=== PATIENT | female | born 1980 | race African-American/Black ===

== ENCOUNTER 2022-02-18 12:59 | Emergency (ER) | payer MEDICAID, OTHER ==
[~2022-02-18] VITALS: Ht 160 cm; Wt 90.7 kg
[2022-02-18] MEDS ORDERED: cloNIDine HCL 0.1 MG TAB PO ONE (13:30)
[2022-02-18] MEDS ORDERED: SODIUM CHLORIDE 0.9% 1,000 ML IV ONE (14:15)
[2022-02-18] MEDS ORDERED: ASPirin 81 mg TAB PO ONE (14:15)
[2022-02-18 14:54] LABS: Basophils # (auto) 0 10 ^3/uL (0-0.2); Basophils % (auto) 0.8 % (0.0-2.0); Eosinophils # (auto) 0.1 10 ^3/uL (0-0.8); Eosinophils % (auto) 1.4 % (0.0-7.0); Hematocrit 37.7 % (36.0-46.0); Hemoglobin 12.6 g/dL (12.2-16.2); Lymphocytes # (auto) 2.1 10 ^3/uL (0.4-5.4); Lymphocytes % (auto) 35.9 % (10.0-50.0); Mean Corpuscular Hemoglobin 30.7 pg (28.0-32.0); Mean Corpuscular Hgb Conc. 33.5 g/dL (32.0-36.0); Mean Corpuscular Volume 91.7 fL (80.0-100.0); Monocytes # (auto) 0.6 10 ^3/uL (0-1.3); Monocytes % (auto) 9.2 % (0.0-12.0); Neutrophils # (auto) 3.1 10 ^3/uL (1.6-8.6); Neutrophils % (auto) 52.7 % (37.0-80.0); Nucleated Red Blood Cells % 0.2 %; Red Blood Cells 4.12 10^6/uL (4.0-5.20); Red Cell Distribution Width 13.7 % (11.8-14.3)
[2022-02-18 15:07] LABS: Albumin 3.2 g/dL (3.4-5.0); Calcium 8.9 mg/dL (8.5-10.1); Magnesium 2.2 mg/dL (1.6-2.6); Potassium 4.7 mmol/L (3.5-5.1)
[2022-02-18 15:11] LABS: BUN/Creatinine Ratio 12.5; Bilirubin, Total 0.2 mg/dL (0.2-1.0); Total Protein 7.2 g/dL (6.4-8.2)
[2022-02-18 15:24] LABS: Beta HCG, Quantitative < 1 mlU/mL (1-3)
[2022-02-18 15:38] LABS: Thyroid Stimulating Hormone 0.46 uIU/mL (0.358-3.74)
[2022-02-18 16:36] LABS: Urine Bacteria FEW /hpf (None Seen); Urine Blood Negative /uL (Negative); Urine Mucus FEW (None Seen); Urine Specific Gravity 1.024 (1.001-1.035); Urine WBC 6 /hpf (0 - 5)
[2022-02-18 16:43] VITALS: BP 154/95
== END 2022-02-18 16:11 | disposition home or self-care (01) ==
LOC: ER 12:59
DX: I10 Essential (primary) hypertension (principal); H10.31 Unspecified acute conjunctivitis, right eye; J30.9 Allergic rhinitis, unspecified; J02.9 Acute pharyngitis, unspecified; F17.210 Nicotine dependence, cigarettes, uncomplicated; Z20.822 Contact with and (suspected) exposure to COVID-19
CPT/HCPCS: 36415; 70220; 71046; 80053; 81001; 83735; 84443; 84702; 85025; 87070; 87426; 87880; 93005; 96360; 96361; 99285; J7030

== ENCOUNTER 2023-05-16 12:10 | Emergency (ER) | payer MEDICAID ==
[~2023-05-16] VITALS: Ht 157.5 cm; Wt 95.0 kg
[2023-05-16] MEDS ORDERED: cloNIDine HCL 0.1 MG TAB PO ONE (14:15)
[2023-05-16 15:06] LABS: Urine Bacteria NONE SEEN /hpf (None Seen); Urine Blood Negative /uL (Negative); Urine Mucus FEW (None Seen); Urine Specific Gravity 1.029 (1.001-1.035); Urine WBC 1 /hpf (0 - 5)
[2023-05-16] MEDS ORDERED: KETOROLAC TROMETH 60MG/2ML VIAL IM ONE (15:30)
[2023-05-16] MEDS ORDERED: CLON0.2T PO (16:08)
[2023-05-16] MEDS ORDERED: CLIN300C70 PO (16:08)
[2023-05-16] MEDS ORDERED: TRAM50TA2 PO (16:08)
[2023-05-16 16:16] VITALS: BP 164/100
== END 2023-05-16 16:17 | disposition home or self-care (01) ==
LOC: ER 12:10
DX: S29.012A Strain of muscle and tendon of back wall of thorax, initial encounter (principal); I10 Essential (primary) hypertension; F41.9 Anxiety disorder, unspecified; F17.210 Nicotine dependence, cigarettes, uncomplicated; K04.7 Periapical abscess without sinus; Z32.02 Encounter for pregnancy test, result negative; X50.1XXA Overexertion from prolonged static or awkward postures, initial encounter; Y93.89 Activity, other specified; Y92.89 Other specified places as the place of occurrence of the external cause; Y99.8 Other external cause status
CPT/HCPCS: 71046; 81001; 81025; 96372; 99284; J1885

== ENCOUNTER 2023-07-17 07:59 | Emergency (ER) | payer MEDICAID ==
[~2023-07-17] VITALS: Ht 160 cm; Wt 95.3 kg
[~2023-07-17 07:59] MED LIST: CLIN300C70 PO; CLON0.2T PO; TRAM50TA2 PO
[2023-07-17] MEDS ORDERED: cloNIDine HCL 0.1 MG TAB PO ONE (08:15)
[2023-07-17 08:31] VITALS: RESP 20
[2023-07-17 08:35] VITALS: TEMP 98; O2SAT 99
[2023-07-17 09:03] VITALS: BP 148/83; PULSE 84
[2023-07-17] MEDS ORDERED: CEPH500C PO (09:18)
[2023-07-17] MEDS ORDERED: METH4PAK PO (09:18)
[2023-07-17] MEDS ORDERED: NAPR-746 PO (09:18)
== END 2023-07-17 09:24 | disposition home or self-care (01) ==
LOC: ER 07:59
DX: S60.466A Insect bite (nonvenomous) of right little finger, initial encounter (principal); B08.4 Enteroviral vesicular stomatitis with exanthem; I10 Essential (primary) hypertension; Z91.199 Patient's noncompliance with other medical treatment and regimen due to unspecified reason; W57.XXXA Bitten or stung by nonvenomous insect and other nonvenomous arthropods, initial encounter; Y93.89 Activity, other specified; Y92.89 Other specified places as the place of occurrence of the external cause; Y99.8 Other external cause status

== ENCOUNTER 2023-11-13 17:26 | Emergency (ER) | payer MEDICAID ==
[~2023-11-13] VITALS: Ht 160 cm; Wt 96.5 kg
[~2023-11-13 17:26] MED LIST changes: +CEPH500C PO; +METH4PAK PO; +NAPR-746 PO
[2023-11-13] MEDS ORDERED: cloNIDine HCL 0.1 MG TAB PO ONE (18:00)
[2023-11-13 18:42] LABS: Basophils # (auto) 0 10 ^3/uL (0-0.2); Basophils % (auto) 0.8 % (0.0-2.0); Eosinophils # (auto) 0.1 10 ^3/uL (0-0.8); Eosinophils % (auto) 1.4 % (0.0-7.0); Hematocrit 41.6 % (36.0-46.0); Hemoglobin 13.4 g/dL (12.2-16.2); Lymphocytes # (auto) 2.8 10 ^3/uL (0.4-5.4); Lymphocytes % (auto) 48.1 % (10.0-50.0); Mean Corpuscular Hemoglobin 29.3 pg (28.0-32.0); Mean Corpuscular Hgb Conc. 32.2 g/dL (32.0-36.0); Monocytes # (auto) 0.5 10 ^3/uL (0-1.3); Monocytes % (auto) 8.6 % (0.0-12.0); Neutrophils # (auto) 2.4 10 ^3/uL (1.6-8.6); Neutrophils % (auto) 41.1 % (37.0-80.0); Nucleated Red Blood Cells % 0.2 %; Red Blood Cells 4.58 10^6/uL (4.0-5.20); Red Cell Distribution Width 14.1 % (11.8-14.3); White Blood Cell 5.9 10^3/uL (4.4-10.8)
[2023-11-13 19:00] LABS: Alanine Aminotransferase 15 U/L (7-40); Albumin 4.4 g/dL (3.2-4.8); Alkaline Phosphatase 54 U/L (46-116); Anion Gap 6 (5-15); Aspartate Aminotransferase 14 U/L (13-40); BUN/Creatinine Ratio 22.1 (10.0-20.0); Blood Urea Nitrogen 17 mg/dL (9-23); Calcium 9.8 mg/dL (8.7-10.4); Carbon Dioxide 27 mmol/L (20-30); Chloride 104 mmol/L (98-107); Glucose 90 mg/dL (74-106); Lipase 32 U/L (12-53); Magnesium 1.9 mg/dL (1.6-2.6); Potassium 4.7 mmol/L (3.5-5.1); Sodium 137 mmol/L (136-145)
[2023-11-13 19:01] LABS: Bilirubin, Total 0.4 mg/dL (0.2-1.0)
[2023-11-13 19:10] LABS: INR 0.97 (0.9-1.15); Prothrombin Time 10.4 sec (9.3-11.8)
[2023-11-13 21:28] VITALS: BP 166/101; PULSE 79; RESP 18; TEMP 97.9; O2SAT 99
[2023-11-13] MEDS ORDERED: CLON0.2T PO (21:32)
== END 2023-11-13 22:09 | disposition home or self-care (01) ==
LOC: ER 17:26
DX: I10 Essential (primary) hypertension (principal); F17.210 Nicotine dependence, cigarettes, uncomplicated; Z91.199 Patient's noncompliance with other medical treatment and regimen due to unspecified reason; Z79.2 Long term (current) use of antibiotics; Z79.899 Other long term (current) drug therapy
CPT/HCPCS: 36415; 71045; 80053; 83690; 83735; 84484; 85025; 85610; 93005

== ENCOUNTER 2024-11-09 12:38 | Inpatient (IN) | payer MEDICAID ==
[~2024-11-09] VITALS: Ht 157.5 cm; Wt 100.3 kg
[~2024-11-09 12:38] MED LIST changes: +CLIN1CAP70 PO; -CLIN300C70 PO
--- NOTE | 2024-11-09 13:27 | ED.PDOC ---
Back pain HPI HPI Comments 44y F who presents to the ED via EMS for chief complaint of back pain. Pt states she has been having cough with associated back pain. Pt states she went to local urgent care and states she was told she had abnormal EKG and came to the ED for further evaluation. Pt states that when she has cough, she feels pain across her chest. Pt otherwise in the ED, has 02 sat of 100% on room air and is able to speak in full sentences. Pt otherwise denies any other symptoms at this time Chief Complaint: Back Pain Time Seen by MD: 13:25 Primary Care Provider: None Reviewed Notes: Medications Allergies: Coded Allergies: NO KNOWN ALLERGIES (Unverified , 02/18/22) Home Meds Active Scripts Clonidine Hydrochloride (Clonidine Hcl) 0.2 Mg Tab, 1 TAB PO BID for 60 Days, #120 TAB 5 Refills Prov:BK SPAULDING MD 11/13/23 Naproxen (Naproxen) 500 Mg Tab, 500 MG PO BID, #24 TAB Prov:ALICE DUMONT 07/17/23 Methylprednisolone (Medrol Dosepak) 4 Mg Leonard, 4 MG PO UD, #21 TAB UAD Prov:ALICE DUMONT 07/17/23 Cephalexin Monohydrate (Cephalexin) 500 Mg Cap, 1 CAP PO QID, #40 CAP Prov:ALICE DUMONT 07/17/23 Tramadol Hcl (Tramadol Hcl) 50 Mg Tab, 50 MG PO BID, #20 TAB Prov:ALICE DUMONT 05/16/23 Clindamycin Hcl (Clindamycin Hcl) 300 Mg Cap, 1 CAP PO TID, #30 CAP Prov:ALICE DUMONT 05/16/23 Information Source: Patient Mode of Arrival: Ambulatory Past Medical History PAST MEDICAL HISTORY: Anxiety, HTN Surgical History: Denies all surgeries BUILDING ARCHITECT History: Denies all BUILDING ARCHITECT Hx Family History Family History: Reviewed,noncontributory to illness Social History Smoker: Cigarettes Alcohol: Occasionally Drugs: Denies Drug Use Lives In: Home Constitutional: denies: chills, diaphoresis, fatigue, fever, malaise, sweats, weakness, others EENTM: denies: blurred vision, double vision, ear bleeding, ear discharge, ear drainage, ear pain, ear ringing, eye pain, eye redness, hearing loss, mouth pain, mouth swelling, nasal discharge, nose bleeding, nose congestion, nose p ain, photophobia, tearing, throat pain, throat swelling, voice changes, others Respiratory: reports: cough; denies: hemoptysis, orthopnea, SOB at rest, shortness of breath, SOB with excertion, stridor, wheezing, others Cardiovascular: denies: chest pain, dizzy spells, diaphoresis, Dyspnea on exertion, edema, irregular heart beat, left arm pain, lightheadedness, palpitations, PND, syncope, others Gastrointestinal: denies: abdomen distended, abdominal pain, blood streaked bowels, constipated, diarrhea, dysphagia, difficulty swallowing, hematemesis, melena, nausea, poor appetite, poor fluid intake, rectal bleeding, rectal pain, vomiting, others Genitourinary: denies: abnormal vagina bleeding, burning, dyspareunia, dysuria, flank pain, frequency, hematuria, incontinence, pain, , vagina discharge, urgency, others Neurological: denies: dizziness, fainting, headache, left sided numbness, left sided weakness, numbness, paresthesia, pre-existing deficit, right sided numbness, right sided weakness, seizure, speech problems, tingling, tremors, weakness, others Musculoskeletal: reports: back pain; denies: gout, joint pain, joint swelling, muscle pain, muscle stiffness, neck pain, others Integumetry: denies: bruises, change in color, change in hair/nails, dryness, laceration, lesions, lumps, rash, wounds, others Allergic/Immunocompromised: denies: Difficulty Healing, Frequent Infections, Hives, Itching, others Hematologic/Lymphatic: denies: anemia, blood clots, easy bleeding, easy bruising, swollen glands, others Endocrine: denies: excessive hunger, excessive sweating, excessive thirst, excessive urination, flushing, intolerance to cold, intolerance to heat, unexplained weight gain, unexplained weight loss, others Psychiatric: denies: anxiety, bipolar disorder, depression, hopeless, panic disorder, schizophrenia, sleepless, suicidal, others All Other Systems: Reviewed and Negative Physical Exam General Appearance: Moderate Distress HEENT: Normal ENT Inspection, Pharynx Normal, TMs Normal Neck: Full Range of Motion, Non-Tender, Normal, Normal Inspection Respiratory: Chest Non-Tender, Lungs Clear, No Accessory Muscle Use, No Respiratory Distress, Normal Breath Sounds Cardiovascular: No Edema, No JVD, No Murmur, No Gallop, Normal Peripheral Pulses, Regular Rate/Rhythm Breast Exam: Deferred Gastrointestinal: No Organomegaly, Non Tender, No Pulsatile Mass, Normal Bowel Sounds, Soft Genitalia: Deferred Pelvic: Deferred Rectal: Deferred Extremities: No calf tenderness, Normal capillary refill, Normal inspection, Normal range of motion, Non-tender, No pedal edema Musculoskeletal : Apperance: Normal Neurologic: Alert, manager document II-XII nml as Tested, No Motor Deficits, Normal Affect, Normal Mood, No Sensory Deficits Cerebellar Function: Normal Reflexes: Normal Skin: Dry, Normal Color, Warm Peripheral Pulses: 3+ Radial (R), 3+ Radial (L) Lymphatic: No Adenopathy Was a procedure done? Was a procedure done?: No Back Pain Differential Dx Differential Diagnosis: Musculoskeletal Pain, Urolithiasis Other Differential Diagnosis pleuritis, costochondritis chronic back pain, lumbar strain/radiculopathy X-Ray, Labs, Meds, VS Vital Signs Date Time Temp Pulse Resp B/P (MAP) Pulse Ox O2 Delivery O2 Flow Rate FiO2 11/09/24 13:13 98.6 86 20 193/84 (120) 100 11/09/24 13:05 89 Lab Test 11/09/24 13:16 Range/Units White Blood Count 5.8 4.4-10.8 10^3/uL Red Blood Count 4.15 4.0-5.20 10^6/uL Hemoglobin 12.5 12.2-16.2 g/dL Hematocrit 40.0 36.0-46.0 % Mean Corpuscular Volume 96.5 80.0-100.0 fL Mean Corpuscular Hemoglobin 30.2 28.0-32.0 pg Mean Corpuscular Hemoglobin Concent 31.3 L 32.0-36.0 g/dL Red Cell Distribution Width 15.0 H 11.8-14.3 % Platelet Count 193 140-450 10^3/uL Mean Platelet Volume 9.6 6.9-10.8 fL Neutrophils (%) (Auto) 63.4 37.0-80.0 % Lymphocytes (%) (Auto) 29.5 10.0-50.0 % Monocytes (%) (Auto) 5.4 0.0-12.0 % Eosinophils (%) (Auto) 1.5 0.0-7.0 % Basophils (%) (Auto) 0.2 0.0-2.0 % Neutrophils # (Auto) 3.7 1.6-8.6 10 ^3/uL Lymphocytes # (Auto) 1.7 0.4-5.4 10 ^3/uL Monocytes # (Auto) 0.3 0-1.3 10 ^3/uL Eosinophils # (Auto) 0.1 0-0.8 10 ^3/uL Basophils # (Auto) 0 0-0.2 10 ^3/uL Nucleated Red Blood Cells 0.1 % Sodium Level 143 136-145 mmol/L Potassium Level 3.8 3.5-5.1 mmol/L Chloride Level 108 H 98-107 mmol/L Carbon Dioxide Level 29 20-31 mmol/L Anion Gap 6 5-15 Blood Urea Nitrogen 11 9-23 mg/dL Creatinine 0.70 0.550-1.02 mg/dL Glomerular Filtration Rate Calc 109 >90 mL/min BUN/Creatinine Ratio 15.7 10.0-20.0 Serum Glucose 101 74-106 mg/dL Calcium Level 9.4 8.7-10.4 mg/dL Troponin I High Sensitivity 12 </=34 ng/L Patient alert. Came in because she is having cough right-sided chest pain along with back pain. She went to urgent care for which they center to the ER for cardiac workup. Vitals stable. EKG reviewed does show LVH. Was given aspirin. Blood pressure elevated. Was given clonidine. Echocardiogram. Possibly will need stress test. Chest x-ray reviewed does not show any acute process. Reviewed her visit from urgent care. Explained to the patient. Continue cardiac monitoring. Time of 1ST Reevaluation: 13:55 Reevaluation 1ST: Unchanged Patient Education/Counseling: Diagnosis, Treatment Family Education/Counseling: No Family Present Departure 1 Departure Time of Disposition: 14:31 Impression: Primary Impression: Chest pain of unknown etiology Additional Impression: Hypertensive urgency Disposition: 09 ADMITTED INPATIENT Admit to: Med Surg Condition: Guarded Critical Care Note Critical Care Time?: Yes (90 min-critical care time only) Stability Stability form required: No Heart Score Heart Score: Heart Score Response (Comments) Value History Slightly Suspicious 0 EKG Normal 0 Age <45 0 Risk Factors 1 or 2 risk factors 1 Troponin Normal limit 0 Total 1 I personally scribed for JACQUELINE PLUMMER MD ([email or web address]) on 11/09/24 at 13:27. Electronically submitted by Jaycob Ramos ([email or web address]). JACQUELINE PLUMMER MD Nov 09, 2024 13:27
--- NOTE | 2024-11-09 13:34 | DVH ---
EXAM: XY CHEST PORTABLE TECHNIQUE: Single frontal chest radiograph CLINICAL HISTORY: cough COMPARISON: XY CHEST XRAY 1 VIEW on DOS: 11/13/23 Findings/Impression: Frontal chest radiograph demonstrates no acute osseous or superficial soft tissue abnormalities. The trachea is midline. The cardiac silhouette and mediastinum are within normal limits. No pneumothorax, pleural effusions, or consolidations.
[2024-11-09 13:47] LABS: Basophils # (auto) 0 10 ^3/uL (0-0.2); Basophils % (auto) 0.2 % (0.0-2.0); Eosinophils # (auto) 0.1 10 ^3/uL (0-0.8); Eosinophils % (auto) 1.5 % (0.0-7.0); Hemoglobin 12.5 g/dL (12.2-16.2); Lymphocytes # (auto) 1.7 10 ^3/uL (0.4-5.4); Lymphocytes % (auto) 29.5 % (10.0-50.0); Mean Corpuscular Hemoglobin 30.2 pg (28.0-32.0); Mean Corpuscular Hgb Conc. 31.3 g/dL (32.0-36.0); Mean Corpuscular Volume 96.5 fL (80.0-100.0); Monocytes # (auto) 0.3 10 ^3/uL (0-1.3); Monocytes % (auto) 5.4 % (0.0-12.0); Neutrophils # (auto) 3.7 10 ^3/uL (1.6-8.6); Neutrophils % (auto) 63.4 % (37.0-80.0); Nucleated Red Blood Cells % 0.1 %; Platelet Count (auto) 193 10^3/uL (140-450); Red Blood Cells 4.15 10^6/uL (4.0-5.20); White Blood Cell 5.8 10^3/uL (4.4-10.8)
[2024-11-09 13:52] LABS: Potassium 3.8 mmol/L (3.5-5.1); Sodium 143 mmol/L (136-145)
[2024-11-09 13:53] LABS: Anion Gap 6 (5-15); Calcium 9.4 mg/dL (8.7-10.4); Carbon Dioxide 29 mmol/L (20-31)
[2024-11-09 13:55] LABS: Chloride 108 mmol/L (98-107)
[2024-11-09 13:58] LABS: BUN/Creatinine Ratio 15.7 (10.0-20.0); Blood Urea Nitrogen 11 mg/dL (9-23); Glucose 101 mg/dL (74-106)
[2024-11-09] MEDS: ASPirin 325 MG TAB PO ONE (14:45)
[2024-11-09] MEDS: SODIUM CHLORIDE 0.9% 500 ML IV ONE (15:44)
[2024-11-09] MEDS: cloNIDine HCL 0.1 MG TAB PO ONE (17:28)
[2024-11-09 20:22] VITALS: PULSE 86; RESP 19; O2SAT 99
[2024-11-10] VITALS (7 sets, daily range): BP systolic 148–186; BP diastolic 73–105; PULSE 80–105; RESP 16–20; TEMP 97.8–98.7; O2SAT 95–100
[2024-11-10] MEDS: HYDROcodone-ACET 10/325MG TAB PO ONE (01:09)
[2024-11-10] MEDS ORDERED: ONDANSETRON HCL 4 MG/2 ML VIAL IV PRN ×2 (06:00→07:00)
[2024-11-10] MEDS ORDERED: MORPHINE SULFATE INJ 2 MG/ml SYRG IV PRN ×2 (06:00→06:45)
[2024-11-10] MEDS ORDERED: ACETAMINOPHEN 325 MG TAB PO PRN ×2 (06:00→06:45)
[2024-11-10] MEDS ORDERED: NITROGLYCERIN 0.4 MG SL TAB SL PRN ×3 (06:00→07:00)
[2024-11-10] MEDS ORDERED: hydrALAZINE HCL 20 MG/ML VL IV PRN (06:00)
[2024-11-10] MEDS ORDERED: HYDROcodone-ACET 5/325MG TAB PO PRN (06:00)
[2024-11-10] MEDS ORDERED: MELATONIN 5 MG TAB PO PRN ×2 (06:00→06:45)
--- NOTE | 2024-11-10 06:08 | DVHHP2 ---
Admitting Diagnosis: Back pain, chest pressure History of Present Illness History Source: Patient Exam Limitations: No limitations HPI Mrs. Kenzie Mcghee is a 44 yo female with known history of anxiety, hypertension, LMP . Patient presents with a chief complaint of worsening chronic back pain, chest pressure with dyspnea intermittently for past 3 months and sore throat with cough. Patient denies any fevers, chills, dizziness, bilateral lower extremity numbness, abdominal pain, diarrhea, constipation. Patient admitted for further evaluation and treatment. Home Meds Active Scripts Clonidine Hydrochloride (Clonidine Hcl) 0.2 Mg Tab, 1 TAB PO BID for 60 Days, #120 TAB 5 Refills Prov:BK SPAULDING MD 11/13/23 Naproxen (Naproxen) 500 Mg Tab, 500 MG PO BID, #24 TAB Prov:ALICE DUMONT 07/17/23 Methylprednisolone (Medrol Dosepak) 4 Mg Leonard, 4 MG PO UD, #21 TAB UAD Prov:ALICE DUMONT 07/17/23 Cephalexin Monohydrate (Cephalexin) 500 Mg Cap, 1 CAP PO QID, #40 CAP Prov:ALICE DUMONT 07/17/23 Tramadol Hcl (Tramadol Hcl) 50 Mg Tab, 50 MG PO BID, #20 TAB Prov:ALICE DUMONT 05/16/23 Clindamycin Hcl (Clindamycin Hcl) 300 Mg Cap, 1 CAP PO TID, #30 CAP Prov:ALICE DUMONT 05/16/23 Past Medical History Cardiac: HTN Pulmonary: No pertinent Hx Central Nervous System: No pertinent Hx GI: No pertinent Hx Hemotology/Oncology: No pertinent Hx Hepatobiliary: No pertinent Hx Psychiatric: Anxiety Musculoskeletal: No pertinent Hx Rheumotologic: No pertinent Hx Infectious Disease: No peritnent Hx ENT: No pertinent Hx Renal/: No pertinent Hx Endocrine: No pertinent Hx Dermatology: No pertinent Hx Smoker: No Hx (Negative) Alocohol: None Drugs: None Lives with: With family Domestic Violence: Neg Review of Systems Constitutional: No symptom reported Ears, Nose, & Throat: No symptom reported Eyes: No symptom reported Pulmonary/Respiratory: Dyspnea, Cough, Pleuritic Chest Pain Cardiovascular: No symptom reported Gastrointestinal: No symptom reported Genitourinary: No symptom reported Musculoskeletal: Back pain Skin: No symptom reported Psychiatric: No symptom reported Endocrine: No symptom reported Hemotologic/Lymphatic: No symptom reported H&P Exam Vital Signs Vital Signs Date Time Temp Pulse Resp B/P (MAP) Pulse Ox O2 Delivery O2 Flow Rate FiO2 11/10/24 04:00 81 16 161/97 (118) 96 11/10/24 03:05 98.3 98.3 11/09/24 20:22 Room Air* 0 21 General Appeara: Well developed, Well nourished, Normal Appearance Head Exam: Normal inspection Neck Exam: Normal inspection, Non-tender, Normal alignment Eye Exam: bilateral eye Normal inspection, bilateral eye PERRL, bilateral eye EOMI Ear Exam: bilateral ear Auricle normal Nasal Exam: Normal inspection Mouth: Normal Inspection Pulmonary/Respiratory: Normal inspection, Normal breath sounds, Chest non- tender, Lungs clear Cardiovascular/Chest: Normal inspection, Regular rate, Normal Rhythm Peripheral Pulses: 2+ dorsalis pedis (R), 2+ dorsalis pedis (L), 2+ Radial (R), 2+ Radial (L) Abdominal Exam: Normal bowel sounds, Soft Rectal Exam: Deferred Back Exam: Normal inspection SECRETARY BOOKKEEPER Exam: Normal hearing, Normal speech, PERRL Motor/Sensory: Normal sensory function, Normal motor function Neuro/Mental St: Alert, Oriented Appearance: Appropriate appearance, Appropriate insight Eye contact/ Speech: Cooperative, Good eye contact, Normal speech Thoughts/Psych: Normal thought pattern Coordination/Gait: Normal finger->nose, Normal gait Skin Exam: Normal inspection, Normal color, Warm/dry Labs/Xrays Labs Test 11/09/24 13:16 Range/Units White Blood Count 5.8 4.4-10.8 10^3/uL Red Blood Count 4.15 4.0-5.20 10^6/uL Hemoglobin 12.5 12.2-16.2 g/dL Hematocrit 40.0 36.0-46.0 % Mean Corpuscular Volume 96.5 80.0-100.0 fL Mean Corpuscular Hemoglobin 30.2 28.0-32.0 pg Mean Corpuscular Hemoglobin Concent 31.3 L 32.0-36.0 g/dL Red Cell Distribution Width 15.0 H 11.8-14.3 % Platelet Count 193 140-450 10^3/uL Mean Platelet Volume 9.6 6.9-10.8 fL Neutrophils (%) (Auto) 63.4 37.0-80.0 % Lymphocytes (%) (Auto) 29.5 10.0-50.0 % Monocytes (%) (Auto) 5.4 0.0-12.0 % Eosinophils (%) (Auto) 1.5 0.0-7.0 % Basophils (%) (Auto) 0.2 0.0-2.0 % Neutrophils # (Auto) 3.7 1.6-8.6 10 ^3/uL Lymphocytes # (Auto) 1.7 0.4-5.4 10 ^3/uL Monocytes # (Auto) 0.3 0-1.3 10 ^3/uL Eosinophils # (Auto) 0.1 0-0.8 10 ^3/uL Basophils # (Auto) 0 0-0.2 10 ^3/uL Nucleated Red Blood Cells 0.1 % Sodium Level 143 136-145 mmol/L Potassium Level 3.8 3.5-5.1 mmol/L Chloride Level 108 H 98-107 mmol/L Carbon Dioxide Level 29 20-31 mmol/L Anion Gap 6 5-15 Blood Urea Nitrogen 11 9-23 mg/dL Creatinine 0.70 0.550-1.02 mg/dL Glomerular Filtration Rate Calc 109 >90 mL/min BUN/Creatinine Ratio 15.7 10.0-20.0 Serum Glucose 101 74-106 mg/dL Calcium Level 9.4 8.7-10.4 mg/dL Troponin I High Sensitivity 12 </=34 ng/L Assessment/Plan Problem List: (1) Back pain (2) Chest pain of unknown etiology (3) Hypertensive urgency Plan 44 yo female with known history of anxiety, hypertension, presents to the hospital with worsening back pain, chest pressure, cough. 1. Back pain 2. Chest pressure 3. Hypertension Admit telemetry unit Cardiology consultation, 2D echo, ASA Lipid panel CT Lumbar spine wo Antihypertensive as needed for optimal blood pressure management GI ppx Protonix DVT ppx Lovenox Discussed all above with patient who verbalizes agreement and understanding of c are plan. All questions were answered. Discussed care plan with patient nurse Minh LOVE. Discussed assessment and care plan with supervising MD. Plan discussed with: Patient, Other Code Visit Code Visit Total Time (mins): 45 Additional Comments Additional Comments Additional Comments Patient is seen and evaluated and chart is reviewed. Discussed with the patient's nurse at bedside regarding care plan. Patient is evaluated and admitted by nurse practitioner this morning. I agree with the nurse practitioner's evaluation, documentation, assessment and care plan as outlined. FELIPA SANTANA Nov 10, 2024 06:08 PALLAVI GANN MD Nov 10, 2024 12:22
[2024-11-10] MEDS: hydrALAZINE HCL 20 MG/ML VL IV PRN (06:59)
[2024-11-10] MEDS: HYDROcodone-ACET 5/325MG TAB PO PRN (06:59)
--- NOTE | 2024-11-10 07:04 | DVH ---
CLINICAL INDICATION: 44 years old, Female; back pain. TECHNIQUE: CT of the lumbar spine was performed without intravenous contrast. Sagittal and coronal re formatted images are provided. All CT scans at this medical facility are performed using dose modula tion techniques as appropriate to a performed exam including the following: Automated exposure contro l was utilized; adjustment of the MA and/or KV according to patient size; and use of iterative recons truction technique. COMPARISON: None CT Dose: CTDI volume is 33.76 mGy. Dose-length product is 1232.6 mGy*cm FINDINGS: The alignment and curvature of the lumbar spine are preserved. The vertebral bodies are normal in hei ght. There is intervertebral disc space narrowing at L5-S1. There is mild canal stenosis at L5-S1. M oderate bilateral neural foraminal stenosis at L5-S1. The spinal canal and neural foramina are otherw ise patent. The prevertebral soft tissues are unremarkable. Paraspinal muscles are also within normal limits. IMPRESSION: 1. No evidence of fracture or malalignment in the lumbar spine. 2. Disc degeneration at L5-S1 causing mild canal stenosis and moderate bilateral neural foraminal amelia nosis.
[2024-11-10 07:12] LABS: Triglycerides 110 mg/dL (< 150)
[2024-11-10 07:14] LABS: Cholesterol 181 mg/dL (< 200); HDL Cholesterol 43 mg/dL (40-59)
[2024-11-10 07:15] LABS: LDL Cholesterol 129 mg/dL (< 100)
[2024-11-10 09:52] LABS: Urine Bacteria FEW /hpf (None Seen); Urine Blood 3+ /uL (Negative); Urine Budding Yeast OCCASIONAL /hpf (None Seen); Urine Clarity Turbid (Clear); Urine Color Yellow (Yellow); Urine Mucus FEW (None Seen); Urine Protein, UAD TRACE (Negative); Urine Specific Gravity 1.031 (1.001-1.035); Urine Squamous Epithelial Cell FEW /hpf (<5); Urine Urobilinogen Normal (Negative); Urine WBC 4 /hpf (0 - 5)
[2024-11-10] MEDS ORDERED: ENOXAPARIN SOD 40 MG/0.4 ML SYRINGE SC SCH (10:00)
[2024-11-10] MEDS ORDERED: ASPirin 81 mg TAB PO SCH (10:00)
[2024-11-10] MEDS ORDERED: PANTOPRAZOLE 40 MG/10 ML VIAL INJ IV SCH (10:00)
[2024-11-10] MEDS: ASPirin 81 mg TAB PO SCH (10:29)
[2024-11-10] MEDS: ENOXAPARIN SOD 40 MG/0.4 ML SYRINGE SC SCH (10:30)
[2024-11-10] MEDS: ONDANSETRON HCL 4 MG/2 ML VIAL IV PRN (10:30)
[2024-11-10] MEDS: PANTOPRAZOLE 40 MG/10 ML VIAL INJ IV SCH (10:30)
[2024-11-10 10:31] LABS: Amphetamine Screen, Urine Neg (NEGATIVE); Barbiturate Scree,Urine Neg (NEGATIVE); Benzodiazephine Screen, Urine Neg (NEGATIVE); Cocaine Screen, Urine Neg (NEGATIVE); Opiate Scree,Urine Pos (NEGATIVE); Phencyclidine Screen, Urine Neg (NEGATIVE)
[2024-11-10 10:32] LABS: Cannabinoid Screen, Urine Neg (NEGATIVE)
[2024-11-10] MEDS ORDERED: MOME50SP11 (12:26)
[2024-11-10] MEDS ORDERED: DEXT1SYP9 PO (12:26)
[2024-11-10] MEDS ORDERED: BLOO1KIT54 XX (12:28)
[2024-11-10] MEDS: PROMETHAZINE W/CODEINE 5 ML ORAL SYRUP PO SCH (18:00)
--- NOTE | 2024-11-10 18:32 | DVHINCON2 ---
Date Seen: Nov 10, 2024 Referring [facility] Reason for Consultation Shortness of breath and chest pain History of Present Illness Patient will progressive back pain and shortness of breath with radiation of chest pain to the front and side. She also complains of chest pressure and dyspnea. Her symptoms began several months ago. She did see a senior receptionist as an outpatient but did not follow up for stress testing. Past Medical History Past medical history significant for accelerated hypertension asthma. History of COPD. Chronic pain syndrome. An arthritis. Past Surgical History No past surgical history of significance. Allergies: Coded Allergies: NO KNOWN ALLERGIES (Unverified , 02/18/22) Home Meds Active Scripts Misc. Devices (Blood Pressure Monitor) Monitor Kit, UNIT XX MWF, #1 Prov:PALLAVI GANN MD 11/10/24 Dextromethorphan-Guaifenesin (Robitussin-Dm) 10 Ml Sr, 10 ML PO Q6HPRN PRN, #120 SYP Prov:PALLAVI GANN MD 11/10/24 Mometasone Furoate (Nasal) (Nasonex 24Hr) 50 Mcg/Act Spr, 50 MCG NA BID, #1 SPRAY Prov:PALLAVI GANN MD 11/10/24 Clonidine Hydrochloride (Clonidine Hcl) 0.2 Mg Tab, 1 TAB PO BID for 60 Days, #120 TAB 5 Refills Prov:BK SPAULDING MD 11/13/23 Naproxen (Naproxen) 500 Mg Tab, 500 MG PO BID, #24 TAB Prov:ALICE DUMONT 07/17/23 Methylprednisolone (Medrol Dosepak) 4 Mg Leonard, 4 MG PO UD, #21 TAB UAD Prov:ALICE DUMONT 07/17/23 Cephalexin Monohydrate (Cephalexin) 500 Mg Cap, 1 CAP PO QID, #40 CAP Prov:ALICE DUMONT 07/17/23 Tramadol Hcl (Tramadol Hcl) 50 Mg Tab, 50 MG PO BID, #20 TAB Prov:ALICE DUMONT 05/16/23 Clindamycin Hcl (Clindamycin Hcl) 300 Mg Cap, 1 CAP PO TID, #30 CAP Prov:ALICE DUMONT 05/16/23 Current Medications Current Medications Medications (Trade) Dose Ordered Sig/Shadia Route PRN Reason Start Time Stop Time Status Last Admin Nitroglycerin (Ntrostat Sublingual) 0.4 mg Q5MINP PRN SL FOR CHEST PAIN 11/10/24 06:00 11/10/24 06:45 DC Morphine Sulfate 2 mg Q30M PRN IV FOR CHEST PAIN 11/10/24 06:00 11/10/24 06:45 DC Ondansetron HCl (Zofran) 4 mg Q6HPRN PRN IV NAUSEA / VOMITING 11/10/24 06:00 11/10/24 06:46 DC Aspirin 81 mg DAILY PO 11/10/24 10:00 11/10/24 06:43 DC Enoxaparin Sodium (Lovenox) 40 mg DAILY SC 11/10/24 10:00 11/10/24 06:43 DC Melatonin (Melatonin) 5 mg ONCE@2200 PRN PO FOR INSOMNIA 11/10/24 06:00 11/10/24 06:44 DC Acetaminophen/ Hydrocodone Bitart ([place] 5/325MG Tab) 1 tab Q6HPRN PRN PO PAIN SCALE 1 THRU 6 11/10/24 06:00 11/10/24 06:44 DC Acetaminophen (Tylenol Tablet) 650 mg Q6HPRN PRN PO TEMP GREATER THAN 100.4 11/10/24 06:00 11/10/24 06:43 DC Pantoprazole Sodium (Protonix) 40 mg DAILY IV 11/10/24 10:00 11/10/24 06:46 DC Hydralazine HCl (Apresoline Injection) 10 mg Q6HPRN PRN IV SBP>160 or DBP>105 11/10/24 06:00 11/10/24 06:44 DC Acetaminophen (Tylenol Tablet) 650 mg Q6HPRN PRN PO TEMP GREATER THAN 100.4 11/10/24 06:45 Aspirin 81 mg DAILY PO 11/10/24 10:00 11/10/24 10:29 Enoxaparin Sodium (Lovenox) 40 mg DAILY SC 11/10/24 10:00 11/10/24 10:30 Hydralazine HCl (Apresoline Injection) 10 mg Q6HPRN PRN IV SBP>160 or DBP>105 11/10/24 06:45 11/10/24 16:18 Acetaminophen/ Hydrocodone Bitart ([place] 5/325MG Tab) 1 tab Q6HPRN PRN PO PAIN SCALE 1 THRU 6 11/10/24 06:45 11/10/24 06:59 Melatonin (Melatonin) 5 mg ONCE@2200 PRN PO FOR INSOMNIA 11/10/24 06:45 Morphine Sulfate 2 mg Q30M PRN IV FOR CHEST PAIN 11/10/24 06:45 Nitroglycerin (Ntrostat Sublingual) 0.4 mg Q5MINP PRN SL FOR CHEST PAIN 11/10/24 07:00 11/10/24 06:45 DC Nitroglycerin (Ntrostat Sublingual) 0.4 mg Q5MINP PRN SL FOR CHEST PAIN 11/10/24 07:00 Ondansetron HCl (Zofran) 4 mg Q6HPRN PRN IV NAUSEA / VOMITING 11/10/24 07:00 11/10/24 06:46 DC Ondansetron HCl (Zofran) 4 mg Q6HPRN PRN IV NAUSEA / VOMITING 11/10/24 07:00 11/10/24 10:30 Pantoprazole Sodium (Protonix) 40 mg DAILY IV 11/10/24 10:00 11/10/24 12:24 DC 11/10/24 10:30 Clonidine HCl (Catapres Tablet) 0.1 mg BID PO 11/10/24 22:00 Cyclobenzaprine HCl (Flexeril Tablet) 5 mg TID PO 11/10/24 14:00 Fluticasone Propionate (Flonase [place]) 50 mcg Q12HR EACHNOSTRI 11/10/24 22:00 Promethazine HCl/ Codeine (Phenergan W/ Codeine) 5 ml Q6HP PO 11/10/24 18:00 Review of Systems No constitutional symptoms of fevers chills or weight loss. Cardiac and respiratory as noted above. GI musculoskeletal endocrine hematologic oncologic negative. Dermatologic negative psychiatric negative. Vital Signs Vital Signs Date Time Temp Pulse Resp B/P (MAP) Pulse Ox O2 Delivery O2 Flow Rate FiO2 11/10/24 17:00 98.0 104 20 148/73 (98) 97 98.0 11/10/24 07:30 Room Air* 0 21 Physical Exam HEENT examination is otherwise unremarkable orally well hydrated. Trachea central neck supple. No jugular distention no bruits. Lungs are reveal diminished air entry few coarse rhonchi. Mild expiratory wheezing. Heart exam reveals a regular S1-S2 soft S4. Abdominal examination is unremarkable. Extremities reveal adequate perfusion without clubbing cyanosis no edema. Neurologically intact. Integumentary is otherwise normal. Labs/Diagnostic Data Labs Test 11/10/24 07:20 11/10/24 06:15 11/09/24 13:16 Range/Units Urine Color Yellow Yellow Urine Clarity Turbid H Clear Urine pH 6.0 5.0-9.0 Urine Specific Mcdaniel 1.031 1.001-1.035 Urine Protein Trace H Negative Urine Ketones Negative Negative Urine Blood 3+ H Negative /uL Urine Nitrite Negative Negative Urine Bilirubin Negative Negative Urine Urobilinogen Normal Negative mg/dL Urine Leukocyte Esterase Negative Negative /uL Urine RBC 14 0 - 4 /hpf Urine WBC 4 0 - 5 /hpf Urine Squamous Epithelial Cells Few <5 /hpf Urine Bacteria Few H None Seen /hpf Urine Mucus Few None Seen Urine Yeast (Budding) Occasional None Seen /hpf Urine Glucose Normal Normal mg/dL Urine Opiates Screen Pos NEGATIVE Urine Fentanyl Screen Neg NEGATIVE Urine Barbiturates Screen Neg NEGATIVE Urine Phencyclidine Screen Neg NEGATIVE Urine Amphetamines Screen Neg NEGATIVE Urine Benzodiazepines Screen Neg NEGATIVE Urine Cocaine Screen Neg NEGATIVE Urine Cannabinoids Screen Neg NEGATIVE D-Dimer, Quantitative < 0.19 0.0-0.49 mg/L FEU Troponin I High Sensitivity 15 </=34 ng/L Triglycerides Level 110 < 150 mg/dL Cholesterol Level 181 < 200 mg/dL LDL Cholesterol 129 H < 100 mg/dL HDL Cholesterol 43 40-59 mg/dL White Blood Count 5.8 4.4-10.8 10^3/uL Red Blood Count 4.15 4.0-5.20 10^6/uL Hemoglobin 12.5 12.2-16.2 g/dL Hematocrit 40.0 36.0-46.0 % Mean Corpuscular Volume 96.5 80.0-100.0 fL Mean Corpuscular Hemoglobin 30.2 28.0-32.0 pg Mean Corpuscular Hemoglobin Concent 31.3 L 32.0-36.0 g/dL Red Cell Distribution Width 15.0 H 11.8-14.3 % Platelet Count 193 140-450 10^3/uL Mean Platelet Volume 9.6 6.9-10.8 fL Neutrophils (%) (Auto) 63.4 37.0-80.0 % Lymphocytes (%) (Auto) 29.5 10.0-50.0 % Monocytes (%) (Auto) 5.4 0.0-12.0 % Eosinophils (%) (Auto) 1.5 0.0-7.0 % Basophils (%) (Auto) 0.2 0.0-2.0 % Neutrophils # (Auto) 3.7 1.6-8.6 10 ^3/uL Lymphocytes # (Auto) 1.7 0.4-5.4 10 ^3/uL Monocytes # (Auto) 0.3 0-1.3 10 ^3/uL Eosinophils # (Auto) 0.1 0-0.8 10 ^3/uL Basophils # (Auto) 0 0-0.2 10 ^3/uL Nucleated Red Blood Cells 0.1 % Sodium Level 143 136-145 mmol/L Potassium Level 3.8 3.5-5.1 mmol/L Chloride Level 108 H 98-107 mmol/L Carbon Dioxide Level 29 20-31 mmol/L Anion Gap 6 5-15 Blood Urea Nitrogen 11 9-23 mg/dL Creatinine 0.70 0.550-1.02 mg/dL Glomerular Filtration Rate Calc 109 >90 mL/min BUN/Creatinine Ratio 15.7 10.0-20.0 Serum Glucose 101 74-106 mg/dL Calcium Level 9.4 8.7-10.4 mg/dL EKG shows sinus rhythm. Left ventricular hypertrophy. ST segment changes are secondary to LVH and/or ischemia. Assessment Atypical chest pain. Back pain. Possible respiratory tract infection. Asthma. Increased body mass index. Dietary and medical indiscretion. Nicotine and smoking addiction. Plan/Recommendation I will request an echocardiogram. A Lexiscan Cardiolite to evaluate for CAD. Continue treatment of what appears to be a respiratory tract infection. Monitor blood pressure and blood glucose. Smoking cessation advised Plan discussed with: Patient Date of Service: Nov 10, 2024 Billing Provider: ANYA WELLS Sr., MD Cardiology Common Codes: [id number] INP/OBS CARE (High) ANYA WELLS Sr., MD Nov 10, 2024 18:32
[2024-11-10] MEDS: CYCLOBENZAPRINE HCL 10 MG TAB PO SCH (19:11)
[2024-11-10] MEDS: FLUTICASONE PROP NASAL SPR 0.05 % (50MCG) 16GM EACHNOSTRI SCH (22:00)
[2024-11-10] MEDS: cloNIDine HCL 0.1 MG TAB PO SCH (23:17)
[2024-11-11] VITALS (7 sets, daily range): BP systolic 148–169; BP diastolic 76–95; PULSE 70–99; RESP 16–18; TEMP 36.4; O2SAT 96–98
[2024-11-11] MEDS ORDERED: SACUBITRIL-VALSARTAN 24mg/26mg TAB PO ONE (02:07)
[2024-11-11] MEDS ORDERED: HYDR-4902 PO (15:34)
[2024-11-11] MEDS ORDERED: CYCL-614 PO (15:34)
[2024-11-11] MEDS ORDERED: LOSA-534 PO (17:04)
--- NOTE | 2024-11-11 17:06 | DVHDS2 ---
Discharge Summary Date of Admission Nov 10, 2024 at 05:53 Date of Discharge: Nov 11, 2024 Labs/Diagnostic Data: Laboratory Results Test 11/10/24 07:20 11/10/24 06:15 11/09/24 13:16 Urine Color Yellow (Yellow) Urine Clarity Turbid (Clear) Urine pH 6.0 (5.0-9.0) Urine Specific Elsie 1.031 (1.001-1.035) Urine Protein Trace (Negative) Urine Ketones Negative (Negative) Urine Blood 3+ /uL (Negative) Urine Nitrite Negative (Negative) Urine Bilirubin Negative (Negative) Urine Urobilinogen Normal mg/dL (Negative) Urine Leukocyte Esterase Negative /uL (Negative) Urine RBC 14 /hpf (0 - 4) Urine WBC 4 /hpf (0 - 5) Urine Squamous Epithelial Cells Few /hpf (<5) Urine Bacteria Few /hpf (None Seen) Urine Mucus Few (None Seen) Urine Yeast (Budding) Occasional /hpf (None Urine Glucose Normal mg/dL (Normal) Urine Opiates Screen Pos (NEGATIVE) Urine Fentanyl Screen Neg (NEGATIVE) Urine Barbiturates Screen Neg (NEGATIVE) Urine Phencyclidine Screen Neg (NEGATIVE) Urine Amphetamines Screen Neg (NEGATIVE) Urine Benzodiazepines Screen Neg (NEGATIVE) Urine Cocaine Screen Neg (NEGATIVE) Urine Cannabinoids Screen Neg (NEGATIVE) D-Dimer, Quantitative < 0.19 mg/L FEU (0.0-0.49) Troponin I High Sensitivity 15 ng/L (</=34) Triglycerides Level 110 mg/dL (< 150) Cholesterol Level 181 mg/dL (< 200) LDL Cholesterol 129 mg/dL (< 100) HDL Cholesterol 43 mg/dL (40-59) White Blood Count 5.8 10^3/uL (4.4-10.8) Red Blood Count 4.15 10^6/uL (4.0-5.20) Hemoglobin 12.5 g/dL (12.2-16.2) Hematocrit 40.0 % (36.0-46.0) Mean Corpuscular Volume 96.5 fL (80.0-100.0) Mean Corpuscular Hemoglobin 30.2 pg (28.0-32.0) Mean Corpuscular Hemoglobin Concent 31.3 g/dL (32.0-36.0) Red Cell Distribution Width 15.0 % (11.8-14.3) Platelet Count 193 10^3/uL (140-450) Mean Platelet Volume 9.6 fL (6.9-10.8) Neutrophils (%) (Auto) 63.4 % (37.0-80.0) Lymphocytes (%) (Auto) 29.5 % (10.0-50.0) Monocytes (%) (Auto) 5.4 % (0.0-12.0) Eosinophils (%) (Auto) 1.5 % (0.0-7.0) Basophils (%) (Auto) 0.2 % (0.0-2.0) Neutrophils # (Auto) 3.7 10 ^3/uL (1.6-8.6) Lymphocytes # (Auto) 1.7 10 ^3/uL (0.4-5.4) Monocytes # (Auto) 0.3 10 ^3/uL (0-1.3) Eosinophils # (Auto) 0.1 10 ^3/uL (0-0.8) Basophils # (Auto) 0 10 ^3/uL (0-0.2) Nucleated Red Blood Cells 0.1 % Sodium Level 143 mmol/L (136-145) Potassium Level 3.8 mmol/L (3.5-5.1) Chloride Level 108 mmol/L (98-107) Carbon Dioxide Level 29 mmol/L (20-31) Anion Gap 6 (5-15) Blood Urea Nitrogen 11 mg/dL (9-23) Creatinine 0.70 mg/dL (0.550-1.02) Glomerular Filtration Rate Calc 109 mL/min (>90) BUN/Creatinine Ratio 15.7 (10.0-20.0) Serum Glucose 101 mg/dL (74-106) Calcium Level 9.4 mg/dL (8.7-10.4) Other Laboratory Tests 11/09/24 13:16 Final Diagnosis/Problems List Acute bronchitis, malignant hypertension, chronic back pain, obesity BMI 40 Discharge Disposition: Home Discharge Instruct/Medications Diet: Consistent carbohydrate, Cardiac 2g Na,low cholest Activity: No Restrictions, As Tolerated Follow Up/Referral: Dr. Pickering book salesman next week for blood pressure control and further evaluation including stress test as deemed appropriate. Primary care physician next week for blood pressure medication adjustment Medications: As prescribed and home medications as per discharge med list. Discharge Statement: "Patient was advised to return to the ER or call 911 if any headaches, dizziness, shortness of breath, chest pain, abdominal pain, bleeding, fevers, or worsening of medical condition. Patient was counseled about treatment plan, medications, possible side effects, patientverbalized understanding. All questions were answered to the best of my ability. This discharge took greater then 30 minutes in planning, reviewing documentation, counseling the patient, and discussing with other team members." ASSESSMENT ASSESSMENT Assessment Acute bronchitis, malignant hypertension, chronic back pain, obesity BMI 40 PALLAVI GANN MD Nov 11, 2024 17:06
[2024-11-11] MEDS ORDERED: PROMETHAZINE W/CODEINE 5 ML ORAL SYRUP PO SCH (18:00)
--- NOTE | 2024-11-12 08:47 | DVHSR ---
APPROVED REPORT EXAM: Two-dimensional and M-mode echocardiogram with Doppler and color Doppler. Blood Pressure: 165/95 mmHg INDICATION Chest Pain RISK FACTORS Height: 62, Weight: 221 DIMENSIONS LVDd4.7 (3.8-5.7cm)LA (2D)5.3 (1.9-4.0cm)Aortic Root3.3 (2.0-3.7cm) LVDs3.5 (2.5-4.0cm)LA (MM) (1.9-4.0cm)Aortic Cusp Exc1.6 (1.5-2.0cm) EF (%) 50.0 (55-70%)Rt. Atrium (1.9-4.0cm)Asc. Aorta cm Mitral Valve MitralMitral Stenosis E wave0.71m/sMV Mean GR.2mmHg A wave0.60m/sMV Peak GR.4mmHg E/A ratio1.22D MVAcm2 DECEL [id number] 1/2 [place] Aortic Valve Aortic ValveAortic Stenosis V11.22m/Colleen Mean GR.7mmHg V21.80m/Colleen Peak GR.13mmHg LVOT Diameter2.1 (1.8-2.4cm)Doppler AVA2.35cm2 Pulmonic Valve V20.94m/s Other Information Technically limited study due to body habitus. Conclusion Sinus rhythm. Concentric LVH. Left atrial enlargement. Valves are normal. EF of 60% with normal RV function. Impaired diastolic relaxation. Mild TR. No pericardial effusion masses or vegetations discernible.
== END 2024-11-11 16:30 | disposition home or self-care (01) | DRG 145 ==
LOC: ER 12:38 → TELE 11-10 05:53 → ER 11-10 06:09 → TELE-E-ADS 11-10 09:28
PROVIDERS: ADMIT Nurse Practitioner Family; ATTEND Nurse Practitioner Family
DX: J20.9 Acute bronchitis, unspecified (principal); J44.0 Chronic obstructive pulmonary disease with (acute) lower respiratory infection; I16.0 Hypertensive urgency; F17.210 Nicotine dependence, cigarettes, uncomplicated; F41.9 Anxiety disorder, unspecified; M54.9 Dorsalgia, unspecified; E66.9 Obesity, unspecified; J45.909 Unspecified asthma, uncomplicated; G89.4 Chronic pain syndrome; I10 Essential (primary) hypertension; Z68.41 Body mass index [BMI] 40.0-44.9, adult; Z79.899 Other long term (current) drug therapy; Z71.6 Tobacco abuse counseling
CPT/HCPCS: 36415; 71045; 72131; 80048; 80061; 80307; 81001; 84484; 85025; 85379; 93306; 99291; 99292; G0378; J2405; J2470